=== PATIENT | female | born 1950 | race Caucasian/White ===

== ENCOUNTER 2019-09-28 18:36 | Emergency (ER) | payer MEDICARE, OTHER ==
--- NOTE | 2019-09-28 19:34 | ERPHSYRPT ---
- History of Present Illness Time Seen by Provider: 09/28/19 18:55 Source: patient Exam Limitations: no limitations Patient Subjective Stated Complaint: pt reports last evening she was lifting up her broken garage door when she believes she pulled a muscle or injured her left ribs. states her pain is worse with movement. Triage Nursing Assessment: pt is aox3, pupils perrl, afebrile, resps easy and non labored, cap refill < 3 seconds, radial pulses strong and equal, pt skin pink warm dry. pt guarding left flank area. skin is intact, no obvious injury or deformity noted. pt ambulatory with no difficulty. Physician History: This is a 68-year-old white female who stated that 2 days ago she was trying to open her garage door. Her garage commercial door installer was not functioning. She felt that day left side of her rib cage and muscles on that side pulled. She has had pain in this area since then. The pain is worse with movement. She has no cough no fever no shortness of breath. She has noticed a rash that started yesterday and there are few spots in this area on the left side in the area of her pain. Timing/Duration: day(s) Severity: moderate Modifying Factors: Improves With: movement Associated Symptoms: denies symptoms Allergies/Adverse Reactions: codeine Allergy (Verified 09/28/19 19:05) Rash Hx Tetanus, Diphtheria Vaccination/Date Given: Yes Hx Influenza Vaccination/Date Given: No Hx Pneumococcal Vaccination/Date Given: Yes Immunizations Up to Date: Yes Travel Risk - International Travel Have you traveled outside of the country in past 3 weeks: No - Coronavirus Screening Are you exhibiting any of the following symptoms?: No Close contact with a COVID-19 positive Pt in past 14-21 Days: No - Review of Systems Constitutional: No Symptoms Eyes: No Symptoms Ears, Nose, & Throat: No Symptoms Respiratory: No Symptoms Cardiac: No Symptoms Abdominal/Gastrointestinal: No Symptoms Genitourinary Symptoms: No Symptoms Musculoskeletal: Other (Pain left lateral rib and rib margin.) Skin: Rash (Left anterior lateral rib margin) Neurological: No Symptoms Psychological: No Symptoms Endocrine: No Symptoms Hematologic/Lymphatic: No Symptoms Immunological/Allergic: No Symptoms All Other Systems: Reviewed and Negative - Past Medical History Pertinent Past Medical History: Yes Neurological History: No Pertinent History Cardiac History: No Pertinent History Respiratory History: No Pertinent History Endocrine Medical History: No Pertinent History Musculoskeletal History: Osteoarthritis Other Medical History: spinal stenosis - Past Surgical History Past Surgical History: Yes Musculoskeletal: Orthopedic Surgery Other Surgical History: foot and wrist - Social History Smoking Status: Current every day smoker How long have you smoked: 40 Drug Use: none Patient Lives Alone: No - Female History Hx Now: No - Nursing Vital Signs Nursing Vital Signs: Initial Vital Signs Temperature 99.1 F 09/28/19 18:44 Pulse Rate 96 H 09/28/19 18:44 Respiratory Rate 20 09/28/19 18:44 Blood Pressure 168/97 09/28/19 18:44 O2 Sat by Pulse Oximetry 98 09/28/19 18:44 Pain Scale Pain Intensity 5 - Physical Exam General Appearance: mild distress, alert, anxiety Eye Exam: PERRL/EOMI, eyes nml inspection Ears, Nose, Throat Exam: normal ENT inspection, moist mucous membranes Neck Exam: normal inspection, non-tender, supple, full range of motion Respiratory Exam: normal breath sounds, chest tenderness (Pain in the area of anterior lateral ribs on the left side. There are is a rash present in this area as well. No cellulitis present), lungs clear, respiratory distress Cardiovascular Exam: regular rate/rhythm, normal heart sounds, normal peripheral pulses Gastrointestinal/Abdomen Exam: soft, normal bowel sounds, No tenderness Pelvic Exam: not done Rectal Exam: not done Back Exam: normal inspection, normal range of motion, rash (Left upper quadrant and left anterior lateral rib margin), No CVA tenderness, No vertebral tenderness Extremity Exam: normal inspection, normal range of motion, pelvis stable Neurologic Exam: alert, oriented x 3, cooperative, borematic operator II-XII nml as tested, normal mood/affect, nml cerebellar function, nml station & gait, sensation nml Skin Exam: rash Lymphatic Exam: No adenopathy (See above) SpO2 Interpretation: normal SpO2: 98 O2 Delivery: Room Air - Course Nursing assessment & vital signs reviewed: Yes Ordered Tests: Active Orders 24 hr Category Date Time Status IV Insertion STAT Care 09/28/19 19:12 Active RIBS UNILATERAL Stat Exams 09/28/19 19:14 Ordered UA W/RFX UR CULTURE Stat Lab 09/28/19 19:30 Received - Progress Progress: unchanged, pain not gone completely Progress Note: 09/28/19 19:48 The rib x-rays on the left side revealed no acute rib fracture. There does not appear to be an underlying pulmonary process. There is a breast implant in place. Medical decision making: This patient likely has a muscle strain on the left side. Additionally, there is a rash in the same area of her complaint of pain. It does look typical for shingles in the early phase. My plan is to treat this patient with Percocet (she states she has had Percocet and tramadol without problems) for her pain and add Zovirax for treatment of her presumed shingles. I told her to wait 24 hours and if the rash is worse to fill her Zovirax prescription. She is to follow-up with her primary care physician for further management. Patient drove herself therefore we will provide the patient with 2 take-home tablets of Percocet 5/325 09/28/19 19:50 Counseled pt/family regarding: diagnosis, need for follow-up, rad results - Departure Departure Disposition: Home Clinical Impression: Left-sided chest wall pain, Shingles rash Condition: Stable Critical Care Time: No Referrals: DOCTOR,NO FAMILY [Primary Care Provider] - Additional Instructions: May add a nonsteroidal anti-inflammatory medication to your pain regimen. Fill your Zovirax prescription if your rash worsens in the next 24 to 48 hours. Follow-up with your primary care physician for persistent or worsening symptoms. Prescriptions: Oxycodone HCl/Acetaminophen [Percocet 5-325 mg Tablet] 1 each PO Q8H PRN PRN #6 tablet MDD 3 PRN Reason: Pain Acyclovir 800 mg [Zovirax 800 mg] 800 mg PO 5XD #35 tablet
[2019-09-28 19:50] LABS: Appearance CLEAR (CLEAR); Bilirubin NEGATIVE (NEGATIVE); Blood SMALL Ery/ul (0-5); Epithelial Cells RARE /HPF (FEW); Glucose NEGATIVE (NEGATIVE); Ketones NEGATIVE (NEGATIVE); Leukocyte Esterase NEGATIVE (NEGATIVE); Mucus SLIGHT /HPF (NEGATIVE); Nitrite NEGATIVE (NEGATIVE); Protein,Urine Dip NEGATIVE (Negative); Specific Gravity 1.009 (1.005-1.025); Urobilinogen NEGATIVE mg/dL (0-1)
[2019-09-28] MEDS ORDERED: PERCOCET TABLET 5/325MG PO STA (19:56)
[2019-09-28] MEDS ORDERED: PERCOCET TABLET 5/325MG ONE (19:57)
[2019-09-28 20:20] VITALS: BP 137/74; PULSE 74; O2SAT 100
--- NOTE | 2019-09-29 14:57 | XRAY ---
Exam: 4 view left rib series from 09/28/2019. Comparison: None. Indication: 68-year-old female injured left rib cage while lifting garage door, complains of left rib pain. Findings: 2 AP images and both oblique images of the left rib cage were obtained. Heavily calcified breast implants are seen. There are 12 pairs of ribs. I see no left rib fracture line or cortical displacement to suggest a displaced fracture within the left rib cage. No other focal bone lesion is seen. No pneumothorax or left-sided pleural effusion is seen. Some costochondral calcification is seen at the anterior margin of multiple ribs. There is minimal convexity of the lower mid thoracic spine toward the left and a moderate rotary dextroscoliosis centered at L2. There is right lateral subluxation of L2 with respect to L1, mild degenerative disc disease at L1-L2 and L3-L4, and moderate to marked degenerative disc disease at L2-L3. These findings appear chronic. Impression: 1. No acute left-sided rib fracture is seen. 2. Other incidental findings, as discussed above.
== END 2019-09-28 20:18 | disposition home or self-care (01) ==
LOC: ED 18:36
DX: R07.89 Other chest pain (principal); B02.9 Zoster without complications
CPT/HCPCS: 36000; 71100; 81001; 99284; A9270-GY

== ENCOUNTER 2020-09-14 08:48 | Day surgery (SDC) | payer MEDICARE ==
--- NOTE | 2020-08-28 09:19 | HP ---
DATE OF SURGERY: 08/31/2020 HISTORY OF PRESENT ILLNESS: The patient is a 69 year-old female who presented for follow up of colon polyps. Reports that last colonoscopy was about eight years ago. Denies symptoms currently. PAST MEDICAL HISTORY: Chronic obstructive pulmonary disease. PAST SURGICAL HISTORY: Wrist and toe procedure. ALLERGIES: CODEINE. MEDICATIONS: Fluticasone, Cyclobenzaprine, Alendronate, Wellbutrin, acyclovir, meloxicam, Xanax, Singular, Albuterol, Lipitor, vitamin D. FAMILY HISTORY: Heart disease, diabetes, hypertension. SOCIAL HISTORY: Five to six cigarettes a day, denies alcohol. REVIEW OF SYSTEMS: CONSTITUTIONAL: Denies fever or chills. CHEST: Denies shortness of breath. CVS: Denies chest pain. ABDOMEN: Denies abdominal pain, nausea, vomiting, diarrhea, constipation or rectal bleeding. INTEGUMENTARY: Negative. PHYSICAL EXAMINATION: GENERAL: No acute distress. CHEST: Nonlabored. No shortness of breath. CVS: Regular rate and rhythm. ABDOMEN: Soft, nontender to palpation. EXTREMITIES: No edema. NEUROLOGIC: Alert. PSYCHIATRIC: Appropriate. IMPRESSION: Follow up past history of colon polyps, screening. PLAN: Colonoscopy with Dr. Arron Pedraza. As dictated by Emma Martinez NP.
--- NOTE | 2020-09-08 13:56 | HP ---
DATE OF SURGERY: 09/14/2020 HISTORY OF PRESENT ILLNESS: The patient presents for colonoscopy. She is a 69 year-old lady reports she has had a couple of scopes in the past, believes that her scope eight years ago was okay. She states she has had polyps in the past. Denies symptoms currently. PAST MEDICAL HISTORY: Thyroid. Anxiety. Back pain. Arthritis. Chronic obstructive pulmonary disease. PAST SURGICAL HISTORY: Wrist and toe surgery. ALLERGIES: CODEINE. MEDICATIONS: Chronic obstructive pulmonary disease medicine, levothyroxine, Xanax, Flexeril, meloxicam, Singular, Advair. FAMILY HISTORY: Heart disease, diabetes, hypertension. SOCIAL HISTORY: Smokes five or six cigarettes a day, denies alcohol. REVIEW OF SYSTEMS: CONSTITUTIONAL: Denies fever or chills. CHEST: Denies shortness of breath. CVS: Denies chest pain. ABDOMEN: Denies abdominal pain. INTEGUMENTARY: Negative. PHYSICAL EXAMINATION: GENERAL: No acute distress. CHEST: Nonlabored. No shortness of breath. CVS: Regular rate and rhythm. ABDOMEN: Soft, nontender to palpation. EXTREMITIES: No edema. NEUROLOGIC: Alert. PSYCHIATRIC: Appropriate. IMPRESSION: Screening. PLAN: Colonoscopy with Dr. Arron Pedraza. As dictated by Emma Martinez NP.
[~2020-09-14 08:48] MED LIST: Lactated Ringers 1,000 ML IV SCH
[2020-09-14] MEDS ORDERED: Lactated Ringers 1,000 ML IV ONE (08:59)
[2020-09-14] MEDS ORDERED: DIPRIVAN 200 MG/20 ML IV ONE (10:23)
[2020-09-14] MEDS ORDERED: GlucaGen 1 MG ONE (10:39)
[2020-09-14 12:22] VITALS: O2SAT 99
[2020-09-14 12:30] VITALS: BP 128/64; PULSE 68
--- NOTE | 2020-09-14 13:41 | OP ---
SURGERY DATE/TIME: 09/14/2020 1033 PREOPERATIVE DIAGNOSIS: Follow up of polyps. POSTOPERATIVE DIAGNOSIS: Two polyps one at 50 cm - 1 cm and at 60 cm - 1 cm. PROCEDURE: Colonoscopy complete to cecum with hot polypectomy of two 1 cm polyps one in the distal descending and one in the mid descending. SURGEON: Arron Pedraza M.D. ANESTHESIA: MAC. COMPLICATIONS: None. CONDITION: Stable. INDICATION: A patient requiring evaluation to follow up polyps. DESCRIPTION OF PROCEDURE: Taken to endoscopy. Left lateral decubitus position. Anal digital examination satisfactory. Scope advanced to the cecum. Base of the cecum, ileocecal valve, appendiceal orifice normal. Ascending, hepatic, transverse, splenic, descending. In the mid descending a 1 cm polyp was taken at 60 cm and the distal descending a 1 cm polyp was taken at 50 cm submitted separately in two containers. Sigmoid, rectum, anus satisfactory. PLAN: Follow up in three years.
== END 2020-09-14 12:45 | disposition home or self-care (01) ==
LOC: SDC 08:48
PROVIDERS: ATTEND Surgery
DX: Z09 Encounter for follow-up examination after completed treatment for conditions other than malignant neoplasm (principal); D12.4 Benign neoplasm of descending colon; J44.9 Chronic obstructive pulmonary disease, unspecified; E07.9 Disorder of thyroid, unspecified; Z79.899 Other long term (current) drug therapy
CPT/HCPCS: 88305; 99100; J1610; J2704

== ENCOUNTER 2023-09-25 10:31 | Day surgery (SDC) | payer MEDICARE ==
--- NOTE | 2023-09-24 11:43 | HP ---
DATE OF SURGERY: 09/25/2023 HISTORY OF PRESENT ILLNESS: The patient is a 72-year-old female presented with complaints of colon polyp. Last colonoscopy in 2020 and had polyps. She has no complaints now. No family history of colon cancer. PAST MEDICAL HISTORY: Diabetes, depression, anxiety, gastroesophageal reflux disease, chronic obstructive pulmonary disease, thyroid. PAST SURGICAL HISTORY: Cataracts. ALLERGIES: CODEINE. MEDICATIONS: Cyclobenzaprine, albuterol, levothyroxine, Turmeric, fish oil, vitamin E, Singulair. FAMILY HISTORY: Hypertension, Parkinson's, diabetes. SOCIAL HISTORY: Current smoker. REVIEW OF SYSTEMS: CONSTITUTIONAL: Denies fever or chills. CHEST: Denies shortness of breath. CVS: Denies chest pain. ABDOMEN: Denies abdominal pain. PHYSICAL EXAMINATION: GENERAL: No acute distress. CHEST: Nonlabored. No shortness of breath. CVS: Regular rate and rhythm. ABDOMEN: Soft. IMPRESSION: History of polyps. PLAN: Colonoscopy with Dr. Arron Pedraza. As dictated by Emma Martinez NP.
[2023-09-25] MEDS ORDERED: Lactated Ringers 1,000 ML IV ONE (11:47)
[2023-09-25] MEDS: Lactated Ringers 1,000 ML IV SCH (11:53)
[2023-09-25 12:00] VITALS: RESP 18
[2023-09-25] MEDS ORDERED: DIPRIVAN 200 MG/20 ML IV ONE ×2 (13:03→13:22)
[2023-09-25] MEDS ORDERED: Versed 2 MG/2 ML Injection ONE (13:05)
[2023-09-25] MEDS ORDERED: GlucaGen 1 MG ONE (13:11)
[2023-09-25 13:57] VITALS: TEMP 97.9
[2023-09-25 14:11] VITALS: BP 145/81; PULSE 60; O2SAT 98
--- NOTE | 2023-09-25 15:13 | OP ---
SURGERY DATE/TIME: 09/25/2023 0539 PREOPERATIVE DIAGNOSIS: Three year follow up for polyps. POSTOPERATIVE DIAGNOSIS: The patient had four significant polyps, three of these were 1 cm and one of these was 6 mm. They were all taken with hot biopsy forceps. One required ligation at the base with a clip this was in the sigmoid. PROCEDURE: Complete colonoscopic examination to cecum. SURGEON: Arron Pedraza M.D. ANESTHESIA: MAC. COMPLICATIONS: None. CONDITION: Stable. DESCRIPTION OF PROCEDURE: Patient taken to endoscopy. Anal digital examination satisfactory. Tone was satisfactory. Scope introduced. Anorectal satisfactory. Scope advanced over to the cecum. Base of the cecum, ileocecal valve, appendiceal orifice normal. There was one right colon polyp 6 mm taken with hot biopsy forceps. There were three polyps in the sigmoid. They were all about 1 cm. They were all taken with hot biopsy forceps. One required a hemostatic clip. The patient tolerated the procedure satisfactorily. Follow up in three years. No family present.
== END 2023-09-25 14:26 | disposition home or self-care (01) ==
LOC: SDC 10:31
PROVIDERS: ATTEND Surgery
DX: Z09 Encounter for follow-up examination after completed treatment for conditions other than malignant neoplasm (principal); Z86.010 Personal history of colon polyps; D12.3 Benign neoplasm of transverse colon; D12.2 Benign neoplasm of ascending colon; D12.5 Benign neoplasm of sigmoid colon
CPT/HCPCS: 93005; 99100; J1610; J2250; J2704

== ENCOUNTER 2025-01-07 06:30 | Day surgery (SDC) | payer MEDICARE ==
[2025-01-07] MEDS ORDERED: CEFAZOLIN SODIUM ONE (07:03)
[2025-01-07] MEDS ORDERED: Decadron 4 MG ONE (07:04)
[2025-01-07] MEDS ORDERED: celeBREX 100 MG ONE (07:04)
[2025-01-07] MEDS ORDERED: TYLENOL EXTRA STRENGTH 500 MG ONE (07:04)
[2025-01-07] MEDS ORDERED: NEURONTIN ONE (07:04)
[2025-01-07] MEDS ORDERED: Lactated Ringers 1,000 ML IV ONE (07:05)
[2025-01-07] MEDS: Lactated Ringers 1,000 ML IV SCH (07:14)
[2025-01-07] MEDS: NEURONTIN PO ONE (07:15)
[2025-01-07] MEDS: TYLENOL EXTRA STRENGTH 500 MG PO ONE (07:15)
[2025-01-07] MEDS: celeBREX 100 MG PO ONE (07:16)
[2025-01-07] MEDS: Decadron 4 MG PO ONE (07:16)
--- NOTE | 2025-01-07 07:29 | XRAY ---
Indication: Preoperative exam. Comparison: February 25, 2020 PA/lateral chest again demonstrates CT proven pulmonary emphysema and mild biapical calcified pleural plaquing. No focal infiltrate, consolidation, or large effusion. Heart and mediastinal structures within normal limits. Bony thorax intact again with osteopenia, mild degenerative changes, minimal scoliosis, and bilateral calcified breast implants. Impression: Continued nonacute chest with chronic features.
[2025-01-07] MEDS ORDERED: MARCAINE 0.25% PF/ EPI 1:200,000 ONE ×2 (07:50→08:57)
[2025-01-07] MEDS ORDERED: DUONEB 0.5-3 MG/3 ml Neb IH ONE (08:17)
[2025-01-07] MEDS ORDERED: Xylocaine-Mpf 2% 5 Ml Vial ONE (08:25)
[2025-01-07] MEDS ORDERED: propofoL IV ONE (08:25)
[2025-01-07] MEDS ORDERED: Versed 2 MG/2 ML Injection ONE (08:25)
[2025-01-07] MEDS ORDERED: Zofran 4 MG/2 ML VIAL ONE (08:25)
[2025-01-07] MEDS ORDERED: SUBLIMAZE 100 MCG/2 ML ONE ×2 (08:26→09:07)
[2025-01-07] MEDS: DUONEB 0.5-3 MG/3 ml Neb IH ONE (08:32)
[2025-01-07] MEDS ORDERED: DEXMEDETOMIDINE 80 MCG/20ML-NS IV ONE (09:04)
[2025-01-07 10:27] VITALS: RESP 18
[2025-01-07 10:38] VITALS: BP 150/97; PULSE 78; TEMP 96.5; O2SAT 96
[2025-01-07] MEDS ORDERED: ZOFRAN ODT 4 MG ONE (10:53)
[2025-01-07] MEDS: ZOFRAN ODT 4 MG PO ONE (10:54)
--- NOTE | 2025-01-10 12:31 | OP ---
SURGERY DATE/TIME: 01/07/2025 [id number] PREOPERATIVE DIAGNOSES: 1) Torn right medial and lateral menisci. 2) Degenerative joint disease. POSTOPERATIVE DIAGNOSES: 1) Torn right medial and lateral menisci. 2) Degenerative joint disease. PROCEDURE: Arthroscopy of the right knee with partial medial and lateral meniscectomies and chondroplasty of the medial femoral condyle, the lateral tibial plateau, and lateral femoral condyle. SURGEON: Radu Moore II, DO. ANESTHESIA: General. DESCRIPTION OF PROCEDURE AND FINDINGS: The patient was identified. Informed consent was obtained. The patient was taken to the operative suite where she was placed into the supine position on the operating table and general anesthetic was administered. Once an appropriate level of anesthesia had been obtained, the tourniquet was placed high on the right thigh. The right lower extremity was then placed in the knee obrien, prepped and draped in the usual sterile fashion. A standard time-out was taken. The leg was exsanguinated, and the tourniquet was elevated to 350 mmHg. At this point, a superomedial portal was created with an 11 knife blade. Trocar and cannula were placed in the joint. The joint was distended with the arthroscopic pump. An inferolateral portal was created with an 11 blade, and the arthroscope was placed in through a cannula. An 18-gauge spinal needle identified the level for the inferomedial portal, which was also created with a #11 blade. The knee was inspected in a systematic fashion, beginning in the suprapatellar pouch where there were no loose bodies or synovial hypertrophy. The undersurface of the patella had some mild degenerative thinning of the articular cartilage and some very early grade 1 to grade 2 chondromalacia. Similar findings were noted in the trochlear groove. The gutters were inspected where there were no loose bodies or synovial hypertrophy. The scope was then placed into the medial compartment where a complex tear involving the middle and posterior horns of the medial meniscus was encountered, resected with the handheld biting instruments and shaved with the shaver to a smooth transition. The patient had very degenerative meniscal cartilage. The patient did have some areas of chondromalacia that were incidentally shaved and chondroplasty performed. The intercondylar notch region was inspected, and the anterior cruciate ligament was noted to be intact. The scope was placed into the lateral compartment, where a complex tear involving the anterior, middle, and posterior horns of the lateral meniscus was encountered, resected with the handheld biting instruments, and shaved with the shaver to a nice smooth transition. Subtotal meniscectomy was actually performed. The patient had hard eburnated bone along most of the weightbearing surface of the lateral femoral condyle and tibial plateau. Any loose tissue was treated and a chondroplasty performed to give good transition. At this point the knee was reinspected and copiously irrigated. No further pathology identified. The instrumentation was removed and the portal sites were closed with interrupted 4-0 nylon sutures. The knee was infiltrated with 30 mL of 0.25% Marcaine with epinephrine. Adaptics, 4 x 4's, and a standard postop arthroscopy dressing applied. The patient was transferred to the cart and taken to the recovery room in satisfactory condition, having tolerated the procedure well.
== END 2025-01-07 11:10 | disposition home or self-care (01) ==
LOC: SDC 06:30
PROVIDERS: ATTEND Orthopaedic Surgery
DX: S83.241A Other tear of medial meniscus, current injury, right knee, initial encounter (principal); S83.281A Other tear of lateral meniscus, current injury, right knee, initial encounter; M19.90 Unspecified osteoarthritis, unspecified site